=== PATIENT | male | born 1990 | race Hispanic/Latino ===

== ENCOUNTER 2022-12-06 13:51 | Emergency (ER) | payer OTHER ==
[~2022-12-06] VITALS: Ht 182.9 cm; Wt 104.3 kg
[2022-12-06 13:56] VITALS: BP 150/87
[2022-12-06] MEDS ORDERED: LIDOCAINE HCL 1% 20 ML VIAL ONE (15:16)
[2022-12-06] MEDS ORDERED: NAPR-1023 PO (15:40)
[2022-12-06] MEDS ORDERED: AMOX1TAB16 PO (15:40)
== END 2022-12-06 16:03 | disposition home or self-care (01) ==
LOC: EDH 13:51
DX: S01.512A Laceration without foreign body of oral cavity, initial encounter (principal); X58.XXXA Exposure to other specified factors, initial encounter; Y93.67 Activity, basketball; Y92.89 Other specified places as the place of occurrence of the external cause; Y99.8 Other external cause status
CPT/HCPCS: 12013; 99282